=== PATIENT | male | born 1990 | race Caucasian/White ===

== ENCOUNTER 2020-03-03 11:56 | Emergency (ER) | payer OTHER ==
[~2020-03-03] VITALS: Ht 175.3 cm; Wt 74.8 kg
[2020-03-03 12:38] LABS: URINE BLOOD NEGATIVE (Negative); URINE CLARITY CLEAR; URINE COLOR YELLOW; URINE GLUCOSE-RANDOM NEGATIVE (Negative); URINE KETONES NEGATIVE (Negative); URINE LEUKOCYTES-REFLEX NEGATIVE (Negative); URINE NITRITE-REFLEX NEGATIVE (Negative); URINE PROTEIN TRACE (Negative); URINE SPECIFIC GRAVITY 1.025 (1.005-1.030)
[2020-03-03 12:40] LABS: ICTOTEST (BILI CONFIRMATORY) Negative (Negative); URINE BILIRUBIN 1+ (Negative)
[2020-03-03 12:44] LABS: ABSOLUTE BASOPHILS 0.1 thou/uL (0.0-0.2); ABSOLUTE EOSINOPHILS 0.2 thou/uL (0.0-0.7); ABSOLUTE MONOCYTES 0.5 thou/uL (0.0-1.2); ABSOLUTE NEUTROPHILS 8.1 thou/uL (1.6-8.1); BASOPHILS 0.7 %; EOSINOPHILS 1.8 %; HEMATOCRIT 33.4 % (42.0-52.0); HEMOGLOBIN 11.3 gm/dL (14.0-18.0); LYMPHOCYTES 10.3 %; MCH 27.9 pg (26.0-34.0); MCHC 33.9 g/dL (28.0-37.0); MCV 82.3 fL (80.0-100.0); MONOCYTES 5.5 %; NUCLEATED RBCS 0 /100WBC; PLATELET COUNT* 166 thou/uL (150-400); POLYS 81.7 %; RBC 4.06 mil/uL (4.50-6.00); RDW-CV 15.3 % (10.5-14.5); WBC 9.9 thou/uL (4.0-11.0)
[2020-03-03 12:50] LABS: CALCIUM 8.5 mg/dL (8.5-10.1); CREATININE 0.7 mg/dL (0.6-1.3); POTASSIUM 3.6 mmol/L (3.5-5.1)
[2020-03-03 12:55] LABS: ALBUMIN 3.3 g/dL (3.4-5.0); TOTAL BILIRUBIN 0.5 mg/dL (<0.1-1.0); TOTAL PROTEIN 7.7 g/dL (6.4-8.2)
[2020-03-03] MEDS ORDERED: IBUPROFEN 800800 M1 PO (18:47)
[2020-03-03] MEDS ORDERED: NORCO 5-325 TA1 EAC1 PO (18:47)
[2020-03-03 19:15] VITALS: BP 105/52
== END 2020-03-03 19:15 | disposition home or self-care (01) ==
LOC: M.ERS 11:56
PROVIDERS: Nurse Practitioner Family
DX: N50.89 Other specified disorders of the male genital organs (principal); F17.210 Nicotine dependence, cigarettes, uncomplicated; Z88.1 Allergy status to other antibiotic agents; Z88.0 Allergy status to penicillin